=== PATIENT | female | born 1995 | race Caucasian/White ===

== ENCOUNTER 2017-05-01 15:38 | Emergency (ER) | payer OTHER ==
[2017-05-01 15:44] VITALS: BP 149/88
--- NOTE | 2017-05-01 16:10 | UC ---
Throat Pain/Nasal Justino HPI - HPI Summary HPI Summary: Pt presents with mother for tonsil swelling. Pt presents with tonsil swelling for 1 week, getting progressively worse. She tells me that she has a history of chronic tonsillitis and needs to schedule a follow up with ENT for potential removal. She is able to eat and drink, but with some difficulty due to tonsil size. Her throat is not painful. She denies fever, chills, SOB, cough, sinus symptoms, chest pain, abdominal pain, N/V/D/C. - History of Current Complaint Chief Complaint: UCRespiratory Stated Complaint: SWOLLEN TONSILS Time Seen by Provider: 05/01/17 15:57 Hx Last Menstrual Period: 04/10/17 ?: No Onset/Duration: Gradual Onset Severity: Moderate - Allergies/Home Medications Allergies/Adverse Reactions: Allergies Allergy/AdvReac Type Severity Reaction Status Date / Time No Known Allergies Allergy Unverified 05/01/17 15:45 Home Medications: Home Medications Ibuprofen [Advil] 200 mg PO Q6H PRN 05/01/17 [History Confirmed 05/01/17] Lorazepam [Ativan 0.5 MG TAB] 0.5 mg PO DAILY PRN 05/01/17 [History Confirmed ] PMH/Surg Hx/FS Hx/Imm Hx Previously Healthy: Yes - Surgical History Surgical History: None - Social History Alcohol Use: Occasionally Substance Use Type: None Smoking Status (MU): Never Smoked Tobacco - Immunization History Most Recent Influenza Vaccination: fall 2016 Review of Systems Constitutional: Negative Skin: Negative Eyes: Negative ENT: Other - Swollen tonsils Respiratory: Negative Cardiovascular: Negative Gastrointestinal: Negative All Other Systems Reviewed And Are Negative: Yes Physical Exam Triage Information Reviewed: Yes Appearance: Well-Appearing, Well-Nourished Vital Signs: Initial Vital Signs Temp 97.4 F 05/01/17 15:40 Pulse 95 05/01/17 15:40 Resp 16 05/01/17 15:40 BP 149/88 05/01/17 15:40 Pulse Ox 100 05/01/17 15:40 Vital Signs Reviewed: Yes Eyes: Positive: Conjunctiva Clear ENT: Positive: Hearing grossly normal, Pharyngeal erythema, TMs normal, Tonsillar swelling - 4+, Muffled voice, Uvula midline. Negative: Nasal congestion, Nasal drainage, TM bulging, TM dull, TM red, Tonsillar exudate, Trismus, Sinus tenderness Neck: Positive: Supple, Nontender, Enlarged Nodes @ - Left posterior cervical Respiratory: Positive: Chest non-tender, Lungs clear, Normal breath sounds, No respiratory distress, No accessory muscle use Cardiovascular: Positive: RRR, No Murmur, Pulses Normal Abdomen Description: Positive: Nontender, No Organomegaly, Soft. Negative: CVA Tenderness (R), CVA Tenderness (L), Distended, Guarding Bowel Sounds: Positive: Present Neurological: Positive: Alert Psychological: Positive: Age Appropriate Behavior Skin: Negative: rashes Throat Pain/Nasal Course/Dx - Course Course Of Treatment: POC strep negative. Dexamethasone 8mg here. Prednisone for 7 days - Differential Dx/Diagnosis Differential Diagnosis/HQI/PQRI: Mononucleosis, Peritonsillar Abscess, Pharyngitis, Tonsillitis, URI Provider Diagnoses: Tonsillitis Discharge - Discharge Plan Condition: Stable Disposition: HOME Prescriptions: RX: predniSONE TAB* [Deltasone TAB*] 40 mg PO DAILY #12 tab Patient Education Materials: Tonsillitis (ED) Referrals: Selena Donald MD [Primary Care Provider] - Additional Instructions: 1) If you develop increased difficulty eating, drinking, or breathing - please call 911 or go to the ED. 2) Follow up with an Ear, Nose, and Throat doctor in [place] for possible tonsillectomy. If you develop a fever, SOB, chest pain, new or worsening symptoms - please call your PCP or go to the ED. Your blood pressure was high at todays visit. Please see your primary provider within 4 weeks for recheck and re-evaluation.
[2017-05-01] MEDS ORDERED: Dexamethasone TAB* 4 MG PO ONE (16:22)
== END 2017-05-01 16:48 | disposition home or self-care (01) ==
LOC: UCEAST 15:38
DX: J03.90 Acute tonsillitis, unspecified (principal)
CPT/HCPCS: 87651; 99212; G0463; J8540